=== PATIENT | female | born 1950 | race Caucasian/White ===

== ENCOUNTER 2020-03-17 14:15 | Emergency (ER) | payer OTHER ==
[2020-03-17 15:14] LABS: Urine Blood TRACE (NEG); Urine Glucose NEGATIVE (NEG); Urine Protein NEGATIVE (NEG); Urine Specific Gravity >1.030 (1.005-1.030); Urine pH 5.5 (5.0-7.0)
[2020-03-17] MEDS ORDERED: NA CHLORIDE 0.9% 500 ML ONE (15:17)
[2020-03-17] MEDS ORDERED: MORPHINE 2 MG/ML SYR ONE ×2 (15:17→16:40)
[2020-03-17] MEDS ORDERED: ONDANSETRON 4 MG/2 ML VIAL ONE ×2 (15:17→16:40)
[2020-03-17 15:32] LABS: Basophils % 0.8 % (0-1.3); Hematocrit 41.6 % (36.0-45.0); Lymphocytes % 11.9 % (15.3-44.8); MPV 8.1 fL (7.6-11.3); RBC Red Blood Cell Count 4.66 M/uL (3.86-4.86)
[2020-03-17 15:37] LABS: Albumin 4.1 g/dL (3.4-5.0); Bilirubin Direct 0.1 mg/dL (0-0.2); Bilirubin Total 0.6 mg/dL (0.2-1.0); Potassium 3.5 mmol/L (3.5-5.1); Protein, Total 7.3 g/dL (6.4-8.2)
--- NOTE | 2020-03-17 16:15 | RAD REPORT ---
EXAM DESCRIPTION: US - Abdomen Exam Limited - 03/17/2020 3:44 pm CLINICAL HISTORY: ABD PAIN COMPARISON: No comparisons FINDINGS: No gallstones, sludge or other abnormalities within the gallbladder lumen. There is no wal l thickening or pericholecystic fluid. No common duct stone or biliary tree dilatation identified. IMPRESSION: Normal gallbladder and biliary tree ultrasound.
--- NOTE | 2020-03-17 17:01 | RAD REPORT ---
EXAM DESCRIPTION: CT - Stone Protocol - 03/17/2020 4:51 pm CLINICAL HISTORY: RUQ/back pain COMPARISON: No comparisons TECHNIQUE: Axial 5 mm thick images were obtained without oral or IV contrast. The [id number] span s the entirety of the system including uppermost abdomen and lung bases. All CT scans are performed using dose optimization technique as appropriate and may include automated exposure control or mA/KV adjustment according to patient size. FINDINGS: The patient has moderate severity hydronephrosis and hydroureter secondary to a 5 mm stone in the distal ureter. Stone is approximately 2 cm from the UVJ. No other obstructing or nonobstructi ng calculi seen. Patient has numerous phleboliths. Right kidney is edematous. No left-sided hydroneph rosis. No suspicious renal masses. Isodense masses and pyelonephritis are not excluded on a stone pro tocol CT scan. No significant adrenal finding. Urinary bladder is fully contracted. No bladder calcul us seen. Uterus and ovaries show no suspicious findings. Imaged portions of the liver, spleen and pancreas show no suspicious findings on non-contrast imaging . No gallbladder or biliary tree abnormality identified. No suspicious bowel findings. Appendix is normal. No hernia, mass or bulky lymphadenopathy noted. No free air, free fluid or inflammatory stranding. Significant disc and bone degenerative changes are present. Left convex degenerative scoliotic curvat ure present. IMPRESSION: Moderate severity right-sided hydronephrosis secondary to a 5 mm obstructing calculus in the distal right ureter approximately 2 cm from the bladder. Edematous right kidney. No other obstructing or nonobstructing calculi. Isodense masses and pyelonephritis are not excluded on stone protocol technique.
[2020-03-17] MEDS ORDERED: CEFTRIAXONE/SWI 1gm 1 GM/10 ML SYR ONE (17:41)
[2020-03-17] MEDS ORDERED: TAMSULOSIN 0.4 MG SR CAP ONE (17:41)
[2020-03-17] MEDS ORDERED: MAGNESIUM SULFATE 1 gm IVPB 1 GM/100 ML BAG IV ONE (17:41)
[2020-03-17] MEDS ORDERED: KETOROLAC 30 MG/ML INJ ONE (17:41)
--- NOTE | 2020-03-17 18:01 | EDPHYS ---
Physician Documentation [facility] Name: Fortunato Villanueva Age: 69 yrs Sex: Female : 1950 Arrival Date: 03/17/2020 Time: 14:18 Bed 16 Private MD: ED Physician David Black HPI: 03/17 15:05 This 69 yrs old Female presents to ER via Ambulatory with complaints of cp Abdominal Pain, Low Back Pain. 15:05 The patient presents with abdominal pain in the right upper quadrant. The symptoms cp radiate to the right flank. Associated signs and symptoms: Pertinent positives: nausea and vomiting. Historical: - Allergies: 14:27 No Known Allergies; em - PMHx: 14:27 Hypertension; em - PSHx: 14:27 Tubal ligation; em - Immunization history:: Adult Immunizations up to date. - Social history:: Smoking status: Patient denies any tobacco usage or history of. ROS: 15:10 Constitutional: Negative for body aches, chills, fever, poor PO intake. cp 15:10 Eyes: Negative for injury, pain, redness, and discharge. cp Exam: 15:15 Constitutional: The patient appears in no acute distress, alert, awake, non-toxic, well cp developed, well nourished, uncomfortable. 15:15 Head/Face: Normocephalic, atraumatic. cp 15:15 Eyes: Periorbital structures: appear normal, Conjunctiva: normal, no exudate, no injection, Sclera: no appreciated abnormality, Lids and lashes: appear normal, bilaterally. 15:15 ENT: External ear(s): are unremarkable, Nose: is normal, Mouth: is normal, Posterior pharynx: is normal, airway is patent. 15:15 Chest/axilla: Inspection: normal, Palpation: is normal, no crepitus, no tenderness. 15:15 Cardiovascular: Rate: normal, Rhythm: regular, Edema: is not appreciated, JVD: is not appreciated. 15:15 Respiratory: the patient does not display signs of respiratory distress, Respirations: normal, no use of accessory muscles, no retractions, labored breathing, is not present, Breath sounds: are clear throughout, no decreased breath sounds, no stridor, no wheezing. 15:15 Abdomen/GI: Inspection: abdomen appears normal, Bowel sounds: active, all quadrants, Palpation: soft, in all quadrants, moderate abdominal tenderness, in the epigastric area and right upper quadrant, rebound tenderness, is not appreciated, involuntary guarding, is not appreciated. 15:15 Back: pain, that is moderate, of the right mid back, ROM is painful, with all movement. Vital Signs: 14:25 BP 136 / 85; Pulse 75; Resp 18; Temp 98.4; Pulse Ox 98% on R/A; Weight 58.97 kg; Height em 5 ft. 7 in. (170.18 cm); Pain 10/10; 16:21 BP 142 / 83; Pulse 82; Resp 18; Pulse Ox 100% on R/A; ph 17:45 BP 132 / 78; Pulse 72; Resp 18; Temp 97.6; Pulse Ox 99% on R/A; ph 14:25 Body Mass Index 20.36 (58.97 kg, 170.18 cm) em MDM: 14:54 Patient medically screened. 17:57 Data reviewed: vital signs, nurses notes, lab test result(s), radiologic studies, CT cp scan, and as a result, I will discharge patient. 17:57 Counseling: I had a detailed discussion with the patient and/or guardian regarding: the cp historical points, exam findings, and any diagnostic results supporting the discharge/admit diagnosis, lab results, radiology results, to return to the emergency department if symptoms worsen or persist or if there are any questions or concerns that arise at home. Response to treatment: the patient's symptoms have markedly improved after treatment, and as a result, I will discharge patient. 03/17 15:00 Order name: Urine Dipstick--Ancillary (enter results); Complete Time: 15:23 em1 03/17 15:24 Interpretation: Normal except: USPGR >1.030; UKET 4+; UBLD TRACE. 03/17 15: Order name: Basic Metabolic Panel; Complete Time: 16:00 03/17 16:00 Interpretation: Normal except: GLUC 163; GFR 63. 03/17 15:01 Order name: CBC with Diff; Complete Time: 16:00 03/17 16:01 Interpretation: Normal except: VIDAL% 83.3; LYM% 11.9. 03/17 15:01 Order name: Hepatic Function; Complete Time: 16:00 cp 03/17 15:01 Order name: Lipase; Complete Time: 16:00 cp 03/17 15:01 Order name: US Abdomen Limited: RUQ/epigastric; Complete Time: 17:14 cp 03/17 17:14 Interpretation: Report reviewed. cp 03/17 16:05 Order name: CT Stone Protocol; Complete Time: 17:14 cp 03/17 15:01 Order name: IV Saline Lock; Complete Time: 15:46 cp 03/17 15:01 Order name: Labs collected and sent; Complete Time: 15:02 cp 03/17 15:01 Order name: Urine Dipstick-Ancillary (obtain specimen); Complete Time: 15:02 cp Administered Medications: 15:25 Drug: Zofran (Ondansetron) 4 mg Route: IVP; Site: right antecubital; ph 16:21 Follow up: Response: No adverse reaction ph 15:25 Drug: NS 0.9% 500 ml Route: IV; Rate: bolus; Site: right antecubital; ph 16:21 Follow up: Response: No adverse reaction; IV Status: Completed infusion; IV Intake: ph 500ml 15:27 Drug: morphine 2 mg Route: IVP; Site: right antecubital; ph 16:22 Follow up: Response: No adverse reaction; Pain is decreased; RASS: Alert and Calm (0) ph 16:44 Drug: morphine 2 mg Route: IVP; Site: right antecubital; ph 17:10 Follow up: Response: No adverse reaction; Pain is decreased ph 17:40 Drug: Rocephin 1 grams Route: IV; Rate: calculated rate; Site: right antecubital; ph 18:00 Follow up: Response: No adverse reaction; IV Status: Completed infusion ph 17:43 Drug: TORadol - Ketorolac 15 mg Route: IVP; Site: right antecubital; ph 18:00 Follow up: Response: No adverse reaction ph 17:45 Drug: Magnesium Sulfate 1 grams Route: IVPB; Infused Over: 1 hrs; Site: right ph antecubital; 18:45 Follow up: Response: No adverse reaction; IV Status: Completed infusion ph 17:53 Drug: Flomax 0.4 mg Route: PO; ph 18:00 Follow up: Response: No adverse reaction ph Disposition: 03/18 05:44 Co-signature as Attending Physician, David Black MD I agree with the assessment and kdr plan of care. Disposition: 03/17/20 18:00 Discharged to Home. Impression: Calculus of ureter - right. - Condition is Stable. - Discharge Instructions: Kidney Stones, Renal Colic. - Prescriptions for Tylenol- Codeine #3 300-30 mg Oral Tablet - take 2 tablets by ORAL route every 6 hours As needed; 20 tablet. Zofran 4 mg Oral Tablet - take 1 tablet by ORAL route every 12 hours As needed; 20 tablet. Flomax 0.4 mg Oral Capsule, Sust. Release 24 hr - take 1 capsule by ORAL route once daily 1/2 hour following the same meal each day; 5 capsule. Keflex 500 mg Oral Capsule - take 1 capsule by ORAL route every 8 hours for 7 days; 21 capsule. - Medication Reconciliation Form, Thank You Letter, Antibiotic Education, Prescription Opioid Use form. - Follow up: Marcelina Sexton MD; When: 2 - 3 days; Reason: symptoms continue. - Problem is new. - Symptoms have improved. Signatures: Dispatcher [employer] EDDavid Kohli MD MD [facility] Bashir Mejia, RN RN em Marie Bardales RN RN ss Ericka Garcia RN RN ph Cary, Harry, LILLIANA PA cp Corrections: (The following items were deleted from the chart) 03/17 18:43 18:00 03/17/2020 18:00 Discharged to Home. Impression: Calculus of ureter - right. ss Condition is Stable. Forms are Medication Reconciliation Form, Thank You Letter, Antibiotic Education, Prescription Opioid Use. Follow up: Marcelina Sexton; When: 2 - 3 days; Reason: symptoms continue. Problem is new. Symptoms have improved. cp
--- NOTE | 2020-03-17 18:01 | ER ---
Nurse's Notes [facility] Name: Fortunato Villanueva Age: 69 yrs Sex: Female : 1950 Arrival Date: 03/17/2020 Time: 14:18 Bed 16 Private MD: Diagnosis: Calculus of ureter-right Presentation: 03/17 14:25 Chief complaint: Patient states: right sided rib pain and RUQ pain that started this em morning, reports N/V denies fever and diarrhea. Coronavirus screen: Proceed with normal triage. Patient denies a cough. Patient denies shortness of breath or difficulty breathing. Patient denies measured and/or subjective temperature greater than 100.4F prior to today's visit. Patient denies travel on a cruise ship or to a country the [facility] currently lists as an affected area. Patient denies contact with known and/or suspected case of COVID-19. Ebola Screen: Patient negative for fever greater than or equal to 101.5 degrees Fahrenheit, and additional compatible Ebola Virus Disease symptoms Patient denies exposure to infectious person. Patient denies travel to an Ebola-affected area in the 21 days before illness onset. No symptoms or risks identified at this time. Initial Sepsis Screen: Does the patient meet any 2 criteria? No. Patient's initial sepsis screen is negative. Does the patient have a suspected source of infection? No. Patient's initial sepsis screen is negative. Risk Assessment: Do you want to hurt yourself or someone else? Patient reports no desire to harm self or others. Onset of symptoms was March 17, 2020. 14:25 Method Of Arrival: Ambulatory em 14:25 Acuity: GILBERT 3 em Historical: - Allergies: 14:27 No Known Allergies; em - PMHx: 14:27 Hypertension; em - PSHx: 14:27 Tubal ligation; em - Immunization history:: Adult Immunizations up to date. - Social history:: Smoking status: Patient denies any tobacco usage or history of. Screenin:57 Abuse screen: Denies threats or abuse. Denies injuries from another. Nutritional ph screening: No deficits noted. Tuberculosis screening: No symptoms or risk factors identified. Fall Risk None identified. Assessment: 15:02 General: Appears in no apparent distress. uncomfortable, well groomed, Behavior is ph calm, cooperative, appropriate for age, restless, Denies fever, feeling ill. Pain: Complains of pain in right upper quadrant Pain radiates to right mid back Quality of pain is described as sharp. Neuro: Level of Consciousness is awake, alert, obeys commands, Oriented to person, place, time, situation. Cardiovascular: Capillary refill < 3 seconds in bilateral fingers Patient's skin is warm and dry. Respiratory: Airway is patent Respiratory effort is even, unlabored, Respiratory pattern is regular, symmetrical. GI: Abdomen is flat, non-distended, Bowel sounds present X 4 quads. Abd is soft X 4 quads Reports upper abdominal pain, nausea, vomiting. Derm: Skin is intact, is healthy with good turgor, Skin is pink, warm \T\ dry. Musculoskeletal: Circulation, motion, and sensation intact. Range of motion: intact in all extremities. 16:20 Reassessment: Patient appears in no apparent distress at this time. Patient and/or ph family updated on plan of care and expected duration. Pain level reassessed. Patient is alert, oriented x 3, equal unlabored respirations, skin warm/dry/pink. Pt appears more comfortably, no longer guarding and restless, reports that pain has decreased, awaiting CT scan, VSS. 17:30 Reassessment: Patient appears in no apparent distress at this time. Patient and/or ph family updated on plan of care and expected duration. Pain level reassessed. Patient is alert, oriented x 3, equal unlabored respirations, skin warm/dry/pink. Patient states feeling better. 18:15 Reassessment: Patient appears in no apparent distress at this time. Patient and/or ph family updated on plan of care and expected duration. Pain level reassessed. Patient is alert, oriented x 3, equal unlabored respirations, skin warm/dry/pink. D/C pending completion of IV medications. Vital Signs: 14:25 BP 136 / 85; Pulse 75; Resp 18; Temp 98.4; Pulse Ox 98% on R/A; Weight 58.97 kg; Height em 5 ft. 7 in. (170.18 cm); Pain 10/10; 16:21 BP 142 / 83; Pulse 82; Resp 18; Pulse Ox 100% on R/A; ph 17:45 BP 132 / 78; Pulse 72; Resp 18; Temp 97.6; Pulse Ox 99% on R/A; ph 14:25 Body Mass Index 20.36 (58.97 kg, 170.18 cm) em ED Course: 14:18 Patient arrived in ED. ag5 14:26 Triage completed. em 14:27 Arm band placed on. em 14:29 Ericka Garcia, RN is Primary Nurse. ph 14:50 Harry Townsend PA is PHCP. cp 14:50 David Black MD is Attending Physician. cp 15:00 Missed attempt(s): 22 gauge in left antecubital area. Bleeding controlled, band aid ph applied, catheter tip intact. 15:25 Inserted saline lock: 22 gauge in right antecubital area, using aseptic technique. ph 15:51 US Abdomen Limited: RUQ/epigastric In Process Unspecified. EDMS 15:58 Patient has correct armband on for positive identification. Placed in gown. Bed in low ph position. Call light in reach. Side rails up X 1. Pulse ox on. NIBP on. Door closed. Noise minimized. Warm blanket given. 16:52 CT Stone Protocol In Process Unspecified. EDMS 18:00 Marcelina Sexton MD is Referral Physician. cp 18:40 No provider procedures requiring assistance completed. IV discontinued, intact, ph bleeding controlled, No redness/swelling at site. Pressure dressing applied. Administered Medications: 15:25 Drug: Zofran (Ondansetron) 4 mg Route: IVP; Site: right antecubital; ph 16:21 Follow up: Response: No adverse reaction ph 15:25 Drug: NS 0.9% 500 ml Route: IV; Rate: bolus; Site: right antecubital; ph 16:21 Follow up: Response: No adverse reaction; IV Status: Completed infusion; IV Intake: ph 500ml 15:27 Drug: morphine 2 mg Route: IVP; Site: right antecubital; ph 16:22 Follow up: Response: No adverse reaction; Pain is decreased; RASS: Alert and Calm (0) ph 16:44 Drug: morphine 2 mg Route: IVP; Site: right antecubital; ph 17:10 Follow up: Response: No adverse reaction; Pain is decreased ph 17:40 Drug: Rocephin 1 grams Route: IV; Rate: calculated rate; Site: right antecubital; ph 18:00 Follow up: Response: No adverse reaction; IV Status: Completed infusion ph 17:43 Drug: TORadol - Ketorolac 15 mg Route: IVP; Site: right antecubital; ph 18:00 Follow up: Response: No adverse reaction ph 17:45 Drug: Magnesium Sulfate 1 grams Route: IVPB; Infused Over: 1 hrs; Site: right ph antecubital; 18:45 Follow up: Response: No adverse reaction; IV Status: Completed infusion ph 17:53 Drug: Flomax 0.4 mg Route: PO; ph 18:00 Follow up: Response: No adverse reaction ph Intake: 16:21 IV: 500ml; Total: 500ml. ph Outcome: 18:00 Discharge ordered by MD. cp 18:43 Patient left the ED. ss 18:43 Discharged to home ambulatory, with family. ph 18:43 Condition: improved 18:43 Discharge instructions given to patient, Instructed on discharge instructions, follow up and referral plans. medication usage, Demonstrated understanding of instructions, follow-up care, medications, Prescriptions given X 4. Signatures: Dispatcher [employer] Bashir Castellanos, Marie Dunn RN, RN RN ss Ericka Garcia RN RN ph Harry Townsend, PA PA Loreto Yanez ag5
--- OUTSIDE RECORDS SUMMARY | 2020-03-17 18:56 | XMS REPORT | Continuity of Care Document ---
:1950 Author Organization [facility] t Address [address] [place] [address] [address] [place] [address] Care Team Providers Name Role Phone Unavailable Unavailable Unavailable Payers Payer Name Policy Type Policy Number Effective Date Expiration Date S ource Problems This patient has no known problems. Allergies, Adverse Reactions, Alerts This patient has no known allergies or adverse reactions. Medications This patient has no known medications. Procedures This patient has no known procedures. Results Test Description Test Time Test Comments Results Result Comments Source BREAST,BIOPSY 2019-04-23 08:22:00 RUN DATE: 04/23/19 [facility] PAGE 1 RUN TIME: 3693 Specimen Inquiry RUN USER: INTERFACE GONZALEZ IENT: LUCIANO RANGEL LOC: [facility]GEL[facility] U #: [id number] AGE/SX: 68/F ROOM: RE04/21/19REG DR: Nolvia Mejia MD : 54 BED: DIS: STATUS: PRE REF TLOC: SPEC #: [id number] RECD: 04/22/19 STATUS: ROXANNE RE #: [id number] FAUSTINA: 04/21/19- SUBM DR: Nolvia Mejia MD ENTERED: 04/22/19 SP TYPE: BREABX OTHR DR: ORDERED: LEVEL IV CODES: [id number] - BREAST, NOS PROCEDURES: LEVEL IV (Incomplete) TISSUES: BREAST, NOS - RIGHT BREAST 12:00 BX TIME IN FORMALIN- 14:06PM CLINICAL HISTORY 68 year old, indet mass, 14 g x 3 cores, prob benign cyst, mass smaller post bx (wpd) NOTE: RIGHT breast 12:00 (1.1 cm): Biopsy: 04/21/19 @ 1405 In formalin: 04/21/19 @ 1406 Out of formalin: 04/22/19 @ 1825 FINAL DIAGNOSIS RIGHT breast 12:00, ultrasound guided core biopsy: - benign breast parenchyma with apocrine metaplasia, cyst formation, stromal fibrosis, and focal ductal hyperplasia without atypia CPT code(s): 00531 [facility]/megha dt: 04/23/19 GROSS DESCRIPTION ANATOMIC SOURCE OF TISSUE (per Requisition): RIGHT breast 12:00 (1.1 cm) The specimen is received in a formalin-filled container, labeled with the patient's name and designated "RIGHT breast 12:00". The specimen consists of multiple levy-pink and yellow, fibrofatty, cylindrical soft tissues, 0.3 - 0.7 cm in length, submitted in toto as A1. jm/wpd 04/22/19 @ 1056 - Signed Sharon Thakur MD 04/23/19 0822 END OF REPORT
[2020-03-17 19:11] VITALS: TEMP 98.4
[2020-03-17 19:12] VITALS: BP 142/83; O2SAT 100
== END 2020-03-17 18:43 | disposition home or self-care (01) ==
LOC: ER 14:15
DX: N20.1 Calculus of ureter (principal); I10 Essential (primary) hypertension
CPT/HCPCS: 96365; 96361; 85025; 80048; 36415; 80076; 81003; 83690; 76377; 74176; 76705; 96375; 99284; J3475; J2270 ×2; J0696; J7040; J2405 ×2